=== PATIENT | female | born 2000 | race Caucasian/White ===

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

== ENCOUNTER → 2024-02-22 | Outpatient (CLI) | payer OTHER ==
[2024-02-22 13:59] LABS: THYROID STIMULATING HORMONE 0.057 uIU/ML (0.55-4.78)
[2024-02-22 14:00] LABS: FREE T4 0.96 NG/DL (0.89-1.76)
== END ==
LOC: M LAB 12:55
PROVIDERS: ATTEND Internal Medicine
DX: R94.6 Abnormal results of thyroid function studies (principal)

== ENCOUNTER 2025-03-04 12:08 | Emergency (ER) | payer OTHER ==
[~2025-03-04] VITALS: Ht 167.6 cm; Wt 87.2 kg
[2025-03-04 12:21] VITALS: BP 150/69; TEMP 97.8; O2SAT 100
[2025-03-04] MEDS ORDERED: IBUP600T42 PO (13:59)
[2025-03-04] MEDS ORDERED: CYCL-707 PO (13:59)
[2025-03-04] MEDS: KETOROLAC 60 MG/2 ML VIAL IM ONE (14:03)
== END 2025-03-04 14:11 | disposition home or self-care (01) ==
LOC: M ED 12:08
DX: S39.012A Strain of muscle, fascia and tendon of lower back, initial encounter (principal); Y92.9 Unspecified place or not applicable; Y93.9 Activity, unspecified; Y99.9 Unspecified external cause status; I10 Essential (primary) hypertension; Z79.1 Long term (current) use of non-steroidal anti-inflammatories (NSAID); Z79.899 Other long term (current) drug therapy
CPT/HCPCS: 96372; 99283; J1885